=== PATIENT | female | born 1985 | race Caucasian/White ===

== ENCOUNTER 2016-09-26 16:32 | Observation (INO) | payer OTHER ==
[~2016-09-26] VITALS: Ht 162.6 cm; Wt 88.9 kg
[~2016-09-26 16:32] MED LIST: ESCITALOPRAM OX10 MG PO; MIRENA1 EACH; PANTOPRAZOLE SO40 M1 PO; PROAIR HFA0.09 MG/Ac PO; SEA-OMEGA 50 C1 EACH PO; TRAZODONE HCL50 M1 PO; VITAMIN D32000 UNIT PO
--- NOTE | 2016-09-26 18:31 | ED GI/GU/ABDOMINAL COMPLAINT ---
History of Present Illness General Chief Complaint: Abdominal Pain/Flank Pain Stated Complaint: ABD PAIN,VOMITING Source: patient, family, old records Exam Limitations: no limitations Vital Signs & Intake/Output Vital Signs & Intake/Output Vital Signs Date Time Temp Pulse Resp B/P B/P Pulse O2 O2 Flow FiO2 Mean Ox Delivery Rate 09/26 2253 97.7 95 18 127/59 97 Room Air 09/26 2119 97.8 93 18 126/65 95 09/26 1641 97.4 80 16 141/89 97 Room Air ED Intake and Output 09/27 0000 09/26 1200 Intake Total 1000 Output Total Balance 1000 Intake, IV 1000 Patient 196 lb Weight Weight Reported by Patient Measurement Method Allergies Coded Allergies: Penicillins (Intermediate, RASH/HIVES 12/21/15) Reconcile Medications Pantoprazole Sodium 40 MG TABLET. 1 TAB PO DAILY ACID REFLUX (Reported) Triage Note: PT STATES SHE HAS HAD ABD PAIN AND VOMITING FOR THE PAST 4 HOURS. Triage Nurses Notes Reviewed? yes ? N Is pt currently ? No Onset: Abrupt Duration: hour(s): (4), constant, waxing and waning Timing: recent history Quality/Severity: aching, cramping Severity Numbers: 7 Location: epigastric Radiation: no radiation Activities at Onset: none No Modifying Factors: none Associated Symptoms: DENIES HPI: 31-year-old female with history of Meckel's diverticulum requiring surgery in 2013 bowel obstruction presents complaining of sudden onset of nausea vomiting and epigastric abdominal pain. She had a normal bowel movement this morning. She is not taken anything else for her symptoms no fever no chills no sick contacts recent travel. Patient denies chest pain shortness of breath or urinary complaints. She has an intrauterine device denies chance of . No urinary complaints. No black or bloody stools no hematemesis (OTTONIEL KHAN) Past History Travel History Traveled to [place] past 21 day No Medical History Any Pertinent Medical History? 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 No (OTTONIEL KHAN) Review of Systems Review of Systems Constitutional: Reports: see HPI. All Other Systems: Reviewed and Negative Comments Review of systems: See HPI, All other systems negative. Constitutional, no chills no fever, no malaise HEENT: no sore throat no congestion Cardiovascular: No chest pain , no palpitation , no orthopnea Skin: no rashes, no change in skin Respiratory: No dyspnea no cough no sputum GI: nausea vomiting, no diarrhea, no bloating/constipation : No dysuria No hematuria, no frequency, no discharge Muscle skeletal: No joint pain, no joint swelling, no back pain Neurologic: no headache Psych: No stress Heme/endocrine: No bruising no bleeding Immunology: No lymphadenopathy (OTTONIEL KHAN) Physical Exam Physical Exam General Appearance: well developed/nourished, alert, awake Gastrointestinal: soft, tenderness Comments: Well-developed well-nourished person in no acute distress HEENT: Normal EENT exam; PERRL, EOMI,. HEAD is atraumatic. moist mucous membranes. Neck: Supple, normal range of motion Back: Nontender, no CVA tenderness. Full range of motion Cardiovascular: Regular rate and rhythms no murmurs rubs Respiratory: Chest nontender.There were no bony deformities, no asymmetry. No respiratory distress. Patient speaking in full complete sentences. Breath sounds clear to auscultation bilaterally: NO W/R/R Abdomen: Soft, epigastric tenderness to palpation no right upper quadrant tenderness negative Osborn sign nondistended, no appreciable organomegaly. Normal bowel sounds. No rebound/guarding, Extremity: No edema, full range of motion of extremities Neuro: Alert oriented x3, motor sensory normal. There were no obvious focal neurologic abnormalities. Skin: No appreciable rash on exposed skin, skin is warm and dry. Psych: Mood and affect is normal, memory and judgment is normal. Core Measures ACS in differential dx? No Severe Sepsis Present: No Septic Shock Present: No (OTTONIEL KHAN) Progress Differential Diagnosis: AAA, appendicitis, biliary colic, bowel obstruction, colon cancer, diverticulitis, ectopic , gastritis, hepatitis, hernia, ischemic bowel, inflamm bowel dis, kidney stone, ovarian cyst, ovarian torsion, pancreatitis, peptic ulcer, PUD/GERD, perforated viscous, SBO Plan of Care: Orders Procedure Date/time Status Regular Diet 09/27 B Active Pathway - chart 09/28 7 Active Patient Data 09/28 7 Active Code Status 09/[address] in observation 09/27 UNK Active VTE Mechanical Prophylaxis 09/27 UNK Active Vital Signs 09/27 UNK Active Activity/Ambulation 09/27 UNK Active PATHOLOGY SPECIMEN 09/26 2332 Active MAGNESIUM 09/26 1835 Complete Intake & Output 09/26 183 Active LIPASE 09/26 170 Complete HUMAN BETA HCG SCREEN 09/26 1701 Complete COMPREHENSIVE METABOLIC PANEL 09/26 1701 Complete CBC WITHOUT DIFFERENTIAL 09/26 1701 Complete AMYLASE 09/26 170 Complete Current Medications Sig/Freedom Start time Last Medication Dose Stop Time Status Admin Heparin Sodium 5,000 UNIT Q8 09/27 0600 AC (Porcine) Dextrose/Sodium 1,000 ML .[id number] 09/27 001 AC 09/27 Chloride 0039 (D5W-1/2 Normal Saline 1000ML) Lorazepam 1 MG Q4P PRN 09/27 0015 AC (Ativan) Morphine Sulfate 4 MG Q2P PRN 09/27 0015 AC (Morphine) Ondansetron HCl 4 MG Q6P PRN 09/27 0015 AC (Zofran) Oxycodone/ 1 TAB Q4P PRN 09/27 0015 AC Acetaminophen (Percocet) Oxycodone/ 2 TAB Q4P PRN 09/27 0015 AC Acetaminophen (Percocet) Laboratory Tests 09/26/161846: Magnesium 1.9 09/26/161846: Anion Gap 15, Estimated GFR > 60, BUN/Creatinine Ratio 22.0, Glucose 95, Calcium 9.6, Total Bilirubin 0.9, AST 22, ALT 38, Alkaline Phosphatase 69, Total Protein 8.4 H, Albumin 5.1 H, Globulin 3.3, Albumin/Globulin Ratio 1.5, Amylase 55, Lipase 51, Total Beta HCG NEGATIVE, CBC w Diff MAN DIFF ORDERED, RBC 4.59, MCV 88.7, MCH 29.9, RDW 13.0, MPV 8.8, Gran % 93.1 H, Lymphocytes % 4.5 L, Monocytes % 2.4, Eosinophils % 0, Basophils % 0 L, Absolute Granulocytes 21.9 H, Segmented Neutrophils 86 H, Band Neutrophils 6 H, Absolute Lymphocytes 1.1 L, Lymphocytes 6 L, Monocytes 2, Absolute Monocytes 0.6, Absolute Eosinophils 0 , Absolute Basophils 0, Platelet Estimate INCREASED, Normochromic RBCs VERIFIED, Anisocytosis 1+, PUBS MCHC 33.7 Labs ordered patient medicated Toradol Pepcid Zofran IV. Case d/w dr yeh agrees with plan 1919 patient reports no improvement in symptoms she has had no episodes of vomiting or dry heaving here she reports Dilaudid helps her when she was admitted to the hospital in the past Dilaudid 1 mg IV ordered CAT scan ordered 2029 patient reports pain improved pending CAT scan's cussed with her at length all of her results Case discussed with Dr. shakeel leija at bedside, pt will go to or this evening (PATRICIA PAN,OTTOINEL) Diagnostic Imaging: Viewed by Me: CT Scan. Discussed w/RAD: CT Scan. Radiology Impression: PATIENT: TITO DUNN PRESENT AGE: 31 PATIENT ACCOUNT NO: [id number] : 84 LOCATION: [facility] ORDERING PHYSICIAN: OTTONIEL PAN SERVICE DATE: 09/26/16 EXAM TYPE: CAT - CT ABD & PELVIS W IV CONTRAST EXAMINATION: CT ABDOMEN AND PELVIS WITH CONTRAST CLINICAL INFORMATION: 31-year-old female patient with history of Meckel's diverticulectomy and small bowel obstruction. Now presents with epigastric pain, nausea, and vomiting. COMPARISON: CT of the abdomen and pelvis on 08/20/2013. ( SBO). TECHNIQUE: Multidetector volumetric imaging was performed of the abdomen and pelvis before and after the IV administration of 95 mL of Optiray 320 intravenous contrast. Sagittal and coronal reformatted images were obtained on the technologist's workstation. DLP: 472 mGy-cm FINDINGS: LUNG BASES: The visualized lung bases are unremarkable. LIVER, GALLBLADDER, AND BILIARY TREE: Normal. PANCREAS: Unremarkable. SPLEEN: Unremarkable. ADRENAL GLANDS: Unremarkable. KIDNEYS AND URETERS: The kidneys are normal in size, shape, and attenuation. No hydronephrosis, hydroureter, or calculi seen. No perinephric stranding. A 7 mm hypodense nodule is located in the upper pole of the left kidney but too small to characterize. BLADDER: Unremarkable. GASTROINTESTINAL TRACT: The stomach, colon, and small bowel are normal. There are signs of previous Meckel's diverticulectomy. The appendix is dilated and contains 2 small appendicoliths. One of these is located at the base of the appendix. There is very mild periappendiceal inflammatory reaction. Series 602, image 43. No free fluid is seen. ABDOMINAL WALL: No significant hernia is appreciated. A very small fat-containing umbilical hernia is present. LYMPH NODES: Normal. VASCULAR: Unremarkable. PELVIC VISCERA: Uterus is normal in size and retroverted. A IUD is centrally located within the endometrial canal. The left ovary is normal. A unilocular cyst arises in the right ovary. This cyst measures 3 cm in width, 4.3 cm in AP diameter and 3.6 cm in cephalocaudad dimension. OSSEOUS STRUCTURES: Unremarkable. IMPRESSION: 1. Early signs of appendicitis. 2. Right ovarian cyst. 3. No evidence of intestinal obstruction. DICTATED BY: LENORE MAYO MD DATE /TIME DICTATED:09/26/162050 CAGE MAKER:AZRA DATE/TIME TRANSCRIBED: 09/26/162050 CONFIDENTIAL, DO NOT COPY WITHOUT APPROPRIATE AUTHORIZATION. < Electronically signed in Other Vendor System> SIGNED BY: LENORE MAYO MD 09/26/162108 Initial ED EKG: none (OTTONIEL KHAN) Departure Departure Time of Disposition: 2147 Disposition: STILL A PATIENT Condition: Stable Referrals: TRINO MUSE (PCP/Family) Departure Forms: Customer Survey General Discharge Information OR/GI Note Spoke With: JUANJO SAENZ MD ED Treatment Decision: TITO DUNN requires urgent operative management or an emergent procedure that cannot be performed in the Emergency Room setting. 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 I have also reviewed all the pertinent lab results and diagnostic results. I agree with the findings and the plan of care as documented in the PA's/HIGHWAY MAINTENANCE CREW WORKER's documentation. [X] I have reviewed the ED Record and agree with the PA's/HIGHWAY MAINTENANCE CREW WORKER's documentation. [] Additions or exceptions (if any) to the PAs/HIGHWAY MAINTENANCE CREW WORKER's note and plan are summarized below: [] (OLLIE GALVIN,SHRAVAN)
[2016-09-26 19:30] LABS: ABSOLUTE BASOPHIL COUNT 0 /CUMM (0.0-0.2); ABSOLUTE EOSINOPHIL COUNT 0 /CUMM (0.0-0.7); ABSOLUTE GRANULOCYTE CT 21.9 /CUMM (1.4-6.5); ABSOLUTE LYMPH COUNT 1.1 /CUMM (1.2-3.4); ABSOLUTE MONOCYTE COUNT 0.6 /CUMM (0.10-0.60); BASOPHIL % 0 % (0.0-2.0); EOSINOPHIL % 0 % (0-5); GRANULOCYTE % 93.1 % (42.2-75.2); HEMATOCRIT 40.8 % (37-47); MEAN CORPUSCULAR HGB 29.9 PG (27.0-31.0); MEAN CORPUSCULAR HGB CONC 33.7 G/DL (33.0-37.0); MEAN CORPUSCULAR VOLUME 88.7 FL (81.0-99.0); MEAN PLATELET VOLUME 8.8 FL (7.4-10.4); PLATELET COUNT 411 /CUMM (130-400); RED BLOOD CELL CT 4.59 /CUMM (4.20-5.40); WHITE BLOOD CELL COUNT 23.6 /CUMM (4.8-10.8)
--- NOTE | 2016-09-26 21:09 | CT SCAN REPORT ---
EXAMINATION: CT ABDOMEN AND PELVIS WITH CONTRAST CLINICAL INFORMATION: 31-year-old female patient with history of Meckel's diverticulectomy and small bowel obstruction. Now presents with epigastric pain, nausea, and vomiting. COMPARISON: CT of the abdomen and pelvis on 08/20/2013. (SBO). TECHNIQUE: Multidetector volumetric imaging was performed of the abdomen and pelvis before and after the IV administration of 95 mL of Optiray 320 intravenous contrast. Sagittal and coronal reformatted images were obtained on the technologist's workstation. DLP: 472 mGy-cm FINDINGS: LUNG BASES: The visualized lung bases are unremarkable. LIVER, GALLBLADDER, AND BILIARY TREE: Normal. PANCREAS: Unremarkable. SPLEEN: Unremarkable. ADRENAL GLANDS: Unremarkable. KIDNEYS AND URETERS: The kidneys are normal in size, shape, and attenuation. No hydronephrosis, hydroureter, or calculi seen. No perinephric stranding. A 7 mm hypodense nodule is located in the upper pole of the left kidney but too small to characterize. BLADDER: Unremarkable. GASTROINTESTINAL TRACT: The stomach, colon, and small bowel are normal. There are signs of previous Meckel's diverticulectomy. The appendix is dilated and contains 2 small appendicoliths. One of these is located at the base of the appendix. There is very mild periappendiceal inflammatory reaction. Series 602, image 43. No free fluid is seen. ABDOMINAL WALL: No significant hernia is appreciated. A very small fat-containing umbilical hernia is present. LYMPH NODES: Normal. VASCULAR: Unremarkable. PELVIC VISCERA: Uterus is normal in size and retroverted. A IUD is centrally located within the endometrial canal. The left ovary is normal. A unilocular cyst arises in the right ovary. This cyst measures 3 cm in width, 4.3 cm in AP diameter and 3.6 cm in cephalocaudad dimension. OSSEOUS STRUCTURES: Unremarkable. IMPRESSION: 1. Early signs of appendicitis. 2. Right ovarian cyst. 3. No evidence of intestinal obstruction.
--- NOTE | 2016-09-26 22:05 | History & Physical Pre-Op ---
JAYSHREE LAUGHLIN 09/26/162156: General Information and HPI MD Statement: I have seen and personally examined TITO SALAZAR and documented this H&P. The patient is a 31 year old F who presented with a patient stated chief complaint of [abdominal pain]. Source of Information: patient Exam Limitations: no limitations History of Present Illness: Ms. Salazar is a 31-year-old female with a past medical history of GERD and asthma who complained of sudden onset mid epigastric abdominal pain that started early this afternoon. This pain was also associated with nausea and vomiting but primarily of dry heaving. She states that she continued at work but pain worsened and became more centrally located in the right lower quadrant. She denies any changes in bladder or bowel habits. She complained of some mild chills but no fever and she has no other complaints at this time. CAT scan taken today at [facility] emergency room demonstrates early presentation of appendicitis. 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 History of MRSA: No History of VRE: No History of CDIFF: No Surgical History Pertinent Surgical History: MECKEL'S DIVERTICULUM, OVARIAN CYST Past Family/Social History Psychosocial History Services at Home None ETOH Use: occasional use Illicit Drug Use: denies illicit drug use Exam & Diagnostic Data Last 24 Hrs of Vital Signs/I&O Vital Signs Date Time Temp Pulse Resp B/P B/P Pulse O2 O2 Flow FiO2 Mean Ox Delivery Rate 09/26 2118 97.8 93 18 126/65 95 09/26 1641 97.4 80 16 141/89 97 Room Air Physical Exam General Appearance Alert, Oriented X3, Cooperative Skin No Rashes HEENT PERRLA Cardiovascular Regular Rate, Normal S1, Normal S2 Lungs Clear to Auscultation Abdomen right lower quadrant tenderness to palpation at McBurney's point, positive Rovsing sign, positive bowel sounds, obese, soft Neurological Strength at 5/5 X4 Ext Extremities No Edema, Normal Pulses Last 24 Hrs of Labs/Ramu: Laboratory Tests 09/26/161846: Magnesium 1.9 05/31/17 1847: Anion Gap 15, Estimated GFR > 60, BUN/Creatinine Ratio 22.0, Glucose 95, Calcium 9.6, Total Bilirubin 0.9, AST 22, ALT 38, Alkaline Phosphatase 69, Total Protein 8.4 H, Albumin 5.1 H, Globulin 3.3, Albumin/Globulin Ratio 1.5, Amylase 55, Lipase 51, Total Beta HCG NEGATIVE, CBC w Diff MAN DIFF ORDERED, RBC 4.59, MCV 88.7, MCH 29.9, RDW 13.0, MPV 8.8, Gran % 93.1 H, Lymphocytes % 4.5 L, Monocytes % 2.4, Eosinophils % 0, Basophils % 0 L, Absolute Granulocytes 21.9 H, Segmented Neutrophils 86 H, Band Neutrophils 6 H, Absolute Lymphocytes 1.1 L, Lymphocytes 6 L, Monocytes 2, Absolute Monocytes 0.6, Absolute Eosinophils 0 , Absolute Basophils 0, Platelet Estimate INCREASED, Normochromic RBCs VERIFIED, Anisocytosis 1+, PUBS MCHC 33.7 Diagnostic Data Other Results SERVICE DATE: 09/26/16 EXAM TYPE: CAT - CT ABD & PELVIS W IV CONTRAST EXAMINATION: CT ABDOMEN AND PELVIS WITH CONTRAST CLINICAL INFORMATION: 31-year-old female patient with history of Meckel's diverticulectomy and small bowel obstruction. Now presents with epigastric pain, nausea, and vomiting. COMPARISON: CT of the abdomen and pelvis on 08/20/2013. (SBO). TECHNIQUE: Multidetector volumetric imaging was performed of the abdomen and pelvis before and after the IV administration of 95 mL of Optiray 320 intravenous contrast. Sagittal and coronal reformatted images were obtained on the technologist's workstation. DLP: 472 mGy-cm FINDINGS: LUNG BASES: The visualized lung bases are unremarkable. LIVER, GALLBLADDER, AND BILIARY TREE: Normal. PANCREAS: Unremarkable. SPLEEN: Unremarkable. ADRENAL GLANDS: Unremarkable. KIDNEYS AND URETERS: The kidneys are normal in size, shape, and attenuation. No hydronephrosis, hydroureter, or calculi seen. No perinephric stranding. A 7 mm hypodense nodule is located in the upper pole of the left kidney but too small to characterize. BLADDER: Unremarkable. GASTROINTESTINAL TRACT: The stomach, colon, and small bowel are normal. There are signs of previous Meckel's diverticulectomy. The appendix is dilated and contains 2 small appendicoliths. One of these is located at the base of the appendix. There is very mild periappendiceal inflammatory reaction. Series 602, image 43. No free fluid is seen. ABDOMINAL WALL: No significant hernia is appreciated. A very small fat-containing umbilical hernia is present. LYMPH NODES: Normal. VASCULAR: Unremarkable. PELVIC VISCERA: Uterus is normal in size and retroverted. A IUD is centrally located within the endometrial canal. The left ovary is normal. A unilocular cyst arises in the right ovary. This cyst measures 3 cm in width, 4.3 cm in AP diameter and 3.6 cm in cephalocaudad dimension. OSSEOUS STRUCTURES: Unremarkable. IMPRESSION: 1. Early signs of appendicitis. 2. Right ovarian cyst. 3. No evidence of intestinal obstruction. DICTATED BY: LENORE MAYO MD DATE/TIME DICTATED:09/26/162050 GLASS BLOWER HELPER:AZRA DATE/TIME TRANSCRIBED:09/26/162050 Assessment/Plan Assessment/Plan: Ms. Salazar is a 31-year-old female with sudden onset of mid epigastric abdominal pain now located in the right lower quadrant. CAT scan findings revealed early appendicitis. Her laboratory values also revealed leukocytosis to 23,000. Given this information Dr. Saenz feels it necessary to take the patient to the operating room suite undergo laparoscopic appendectomy this evening. Plan Nothing by mouth IV fluid IV antibiotics These findings were discussed with the patient who is known to Dr. Saenz and is in agreement with the plan. As Ranked By This Provider Problem List: 1. Appendicitis JUANJO SAENZ MD 09/26/16 7655: General Information and HPI Allergies/Medications Home Med list Pantoprazole Sodium 40 MG TABLET. 1 TAB PO DAILY ACID REFLUX (Reported) Attending MD Review Statement Attending Statement Attending MD Statement: examined this patient, reviewed images Attending Assessment/Plan: 31YO WOMAN WITH PROGRESSION OF ABDOMINAL PAIN C/W APPENDICITIS. CT CONFIRMS DIAGNOSIS. PLAN FOR BROAD SPECTRUM ANTIBIOTICS AND PROMPT LAPAROSCOPIC APPENDECTOMY. RISK OF INFECTION AND BLEEDING DISCUSSED.
--- NOTE | 2016-09-26 23:43 | Operative Report ---
Operative/Inv Procedure Report Surgery Date: 09/26/16 Name of Procedure: Laparoscopic appendectomy Pre-Operative Diagnosis: Acute appendicitis Post-Operative Diagnosis: Same Estimated Blood Loss: scant Surgeon/Director Of Food And Beverage Services: Antonio Read M.D./Hasmukh PAN Anesthesia: general endotracheal tube Specimens: Appendix Operative/Procedure Note Note: After consent patient is brought to the operating room and laid supine. General anesthesia was obtained his abdomen was prepped and draped. Skin above the umbilicus was after local anesthesia a curvilinear incision made sharply. We dissected through subcutaneous tissues tissues bluntly and identified the fascia. It was grasped with Ro's and a fasciotomy created sharply. The peritoneum was entered sharply and a blunt Sullivan port was placed. Pneumoperitoneum was achieved. 2, 5 mm ports were placed in the suprapubic region and left lower quadrant, after local anesthesia was instilled and under direct vision the camera. Patient placed in Trendelenburg and rotated towards the left. The abdomen was explored. There was an inflamed appendix in the right lower quadrant. It was intraperitoneal with a small amount of retroperitoneal attachments laterally. These were taken down with cautery. Was no gross evidence of perforation. There is mild turbid fluid in the peritoneal cavity. The appendix was grasped at the base and a window through the mesentery was developed with a [place] dissector. The mesentery was divided with Endo LIZBET Renteria load. The base was divided with a reload. The appendix placed in Endo Catch bag and cinched up. Perineal cavity isn't irrigated normal saline. Hemostasis was adequate. The ports then removed. Appendix was delivered. The fascia was closed with 0 Vicryl suture. Skin incisions closed with 4-0 Vicryl. Steri-Strips and sterile dressings were applied. Sponge and needle counts are correct CC: MAXWELL PAN,TRINO
--- NOTE | 2016-09-27 00:23 | Admission Core Measures ---
Admission Lab Results I reviewed the following labs: Laboratory Tests 09/26 09/26 7467 [id number] Chemistry Sodium (137 - 145 mmol/L) 139 Potassium (3.5 - 5.1 mmol/L) 4.2 Chloride (98 - 107 mmol/L) 101 Carbon Dioxide (22 - 30 mmol/L) 23 Anion Gap (5 - 16) 15 BUN (7 - 17 mg/dL) 11 Creatinine (0.5 - 1.0 mg/dL) 0.5 Estimated GFR (>60 ml/min) > 60 BUN/Creatinine Ratio (7 - 25 %) 22.0 Glucose (65 - 99 mg/dL) 95 Calcium (8.4 - 10.2 mg/dL) 9.6 Magnesium (1.6 - 2.3 mg/dL) 1.9 Total Bilirubin (0.2 - 1.3 mg/dL) 0.9 AST (14 - 36 U/L) 22 ALT (9 - 52 U/L) 38 Alkaline Phosphatase (<127 U/L) 69 Total Protein (6.3 - 8.2 g/dL) 8.4 H Albumin (3.5 - 5.0 g/dL) 5.1 H Globulin (1.9 - 4.2 gm/dL) 3.3 Albumin/Globulin Ratio (1.1 - 2.2 %) 1.5 Amylase (30 - 110 U/L) 55 Lipase (23 - 300 U/L) 51 Total Beta HCG (NEGATIVE) NEGATIVE Hematology CBC w Diff MAN DIFF ORDERED WBC (4.8 - 10.8 /CUMM) 23.6 H RBC (4.20 - 5.40 /CUMM) 4.59 Hgb (12.0 - 16.0 G/DL) 13.7 Hct (37 - 47 %) 40.8 MCV (81.0 - 99.0 FL) 88.7 MCH (27.0 - 31.0 PG) 29.9 RDW (11.5 - 14.5 %) 13.0 Plt Count (130 - 400 /CUMM) 411 H MPV (7.4 - 10.4 FL) 8.8 Gran % (42.2 - 75.2 %) 93.1 H Lymphocytes % (20.5 - 51.1 %) 4.5 L Monocytes % (1.7 - 9.3 %) 2.4 Eosinophils % (0 - 5 %) 0 Basophils % (0.0 - 2.0 %) 0 L Absolute Granulocytes (1.4 - 6.5 /CUMM) 21.9 H Segmented Neutrophils (42.2 - 75.2 %) 86 H Band Neutrophils (0.0 - 5.0 %) 6 H Absolute Lymphocytes (1.2 - 3.4 /CUMM) 1.1 L Lymphocytes (20.5 - 51.1 %) 6 L Monocytes (1.7 - 9.3 %) 2 Absolute Monocytes (0.10 - 0.60 /CUMM) 0.6 Absolute Eosinophils (0.0 - 0.7 /CUMM) 0 Absolute Basophils (0.0 - 0.2 /CUMM) 0 Platelet Estimate (ADEQUATE) INCREASED Normochromic RBCs VERIFIED Anisocytosis 1+ PUBS MCHC (33.0 - 37.0 G/DL) 33.7 Admission Meds I reviewed the following Meds: Current Medications Sig/Freedom Start time Last Medication Dose Stop Time Status Admin Dextrose/Sodium 1,000 ML .[id number] 09/27 0015 UNVr Chloride (D5W-1/2 Normal Saline 1000ML) Heparin Sodium 5,000 UNIT Q8 09/27 0600 UNVr (Porcine) Lorazepam 1 MG Q4P PRN 09/27 0015 UNVr (Ativan) Morphine Sulfate 4 MG Q2P PRN 09/27 0015 UNVr (Morphine) Ondansetron HCl 4 MG Q6P PRN 09/27 0015 UNVr (Zofran) Oxycodone/ 1 TAB Q4P PRN 06 0015 UNVr Acetaminophen (Percocet) Oxycodone/ 2 TAB Q4P PRN 06 0015 UNVr Acetaminophen (Percocet) Acute Coronary Syndrome Inclusion Criteria ACS Diagnosis No Inpatient Core Measures LDL Reminder: If No, please order W/I first 24hr of stay Congestive Heart Failure Inclusion Criteria CHF Diagnosis No Cerebrovascular accident Inclusion Criteria CVA/TIA Diagnosis No Inpatient Core Measures Bedside Swallow Eval Reminder: If BSE failed, place ST order Antithrombotic Reminder: Order Antithrombotic Medication by end of day 2 Antithrombotic Reminder: Document Reason Antithrombotic Not ordered by end of day 2 AFIB/Flutter Reminder: If Present, add to problem list AFIB/Flutter Reminder: Order Anticoag Medication for pts with AFIB/Flutter Atherosclerosis Reminder: If Present, add to problem list LDL Reminder: If No, please order W/I first 24hr of stay PT Order Reminder: If No, please order Venous thromboembolism Inpatient Core Measures VTE Risk Factors: Obesity, Surgery No Mech VTE prophylaxis d/t No contraindications No VTE Pharm Prophylaxis d/t No contraindications Inclusion Criteria - Per Current guidelines, there needs to be overlap - treatment for the first 5 days of Warfarin therapy. - Parenteral Anticoagulation (IV or SC) needs to be - given along with Warfarin therapy. VTE Diagnosis No VTE Type NONE VTE Confirmed by (Test) NONE Problem List As ranked by this Provider includes Assessment & Plan 1. Appendicitis HOME MEDS Home Med List Pantoprazole Sodium 40 MG TABLET.DR 1 TAB PO DAILY ACID REFLUX (Reported)
[2016-09-27 02:00] VITALS: BP 114/70
[2016-09-27 04:01] VITALS: BP 128/80
--- NOTE | 2016-09-27 05:48 | PN- General Surgery ---
See Addendum Subjective Subjective: poc s/p lap appy resting comfortably no major issues overnight denies cp, sob, no n+v with diet has voided independently Objective Vital Signs and I&Os Vital Signs Date Time Temp Pulse Resp B/P B/P Pulse O2 O2 Flow FiO2 Mean Ox Delivery Rate 09/27 0401 98.0 75 18 128/80 96 Nasal Cannula 09/27 0200 98.0 84 20 114/70 93 Nasal 2.0L Cannula 09/26 2253 97.7 95 18 127/59 97 Room Air 09/26 2119 97.8 93 18 126/65 95 09/26 1641 97.4 80 16 141/89 97 Room Air Intake & Output 09/27 0800 09/27 0000 09/26 1600 09/26 0800 09/26 0000 09/25 1600 Intake Total 1000 Output Total Balance 1000 Intake, IV 1000 Number 0 Bowel Movements Patient 196 lb Weight Weight Reported by Patient Measurement Method Physical Exam: cv: rrr lungs: clear abd: soft, no guarding to palp drsgs dry ext: warm, distal cms intact Assessment/Plan Assessment/Plan surgical stable plan oob/ambulate advance diet d/c iv narcs plan for d/c home this am Core Measures/Miscellaneous Venous Thromboembolism VTE Risk Factors: Surgery VTE Contraindications: No Contraindications VTE Diagnosis: No VTE Type: NONE VTE Confirmed by (Test): NONE Beta Verito Is Beta Verito a Home Med? No Antibiotics Is Patient on Antibiotics? No
--- NOTE | 2016-09-27 05:52 | Patient Discharge Instructions ---
Discharge Instructions General Discharge Information You were seen/treated for: acute appendicitis You had these procedures: laparoscopic appendectomy Watch for these problems: temp>101.5, increase wound drsinage/redness, increased pain No bath, but you may shower: Yes Other wound care: keep wound clean and dry Diet Continue normal diet: Yes Recommended Diet: Regular Activity Activity Limited to: Weight bear as tolerated Other activity limits: no strenuous activity Acute Coronary Syndrome Inclusion Criteria At DC or during hospital stay patient has or had the following: ACS DIAGNOSIS No Discharge Core Measures Meds if any: Prescribed or Continued at Discharge Meds if any: NOT Prescribed or Continued at Discharge Congestive Heart Failure Inclusion Criteria At DC or during hospital stay patient has or had the following: CHF DIAGNOSIS No Discharge Core Measures Meds if any: Prescribed or Continued at Discharge Meds if any: NOT Prescribed or Continued at Discharge Cerebrovascular accident Inclusion Criteria At DC or during hospital stay patient has or had the following: CVA/TIA Diagnosis No Discharge Core Measures Meds if any: Prescribed or Continued at Discharge Meds if any: NOT Prescribed or Continued at Discharge Venous thromboembolism Inclusion Criteria VTE Diagnosis No VTE Type NONE VTE Confirmed by (Test) NONE Discharge Core Measures - Per Current guidelines, there needs to be overlap - treatment for the first 5 days of Warfarin therapy. - If discharged on Warfarin prior to 5 days of - overlap therapy, the patient will need to be - assessed for post discharge needs including - *Post discharge parental anticoagulation - *Warfarin and/or parental anticoagulation education - *Follow up date to check INR post discharge At least 5 days overlap therapy as Inpatient No Meds if any: Prescribed or Continued at Discharge Note: Overlap Therapy is Warfarin and Anticoagulant Meds if any: NOT Prescribed or Continued at Discharge
[2016-09-27] MEDS ORDERED: HYDROMORPHONE HC2 M1 PO (05:53)
[2016-09-27 06:00] VITALS: BP 118/66
[2016-09-27 08:20] VITALS: BP 104/68
[2016-09-27 14:33] VITALS: BP 100/60
[2016-09-27] MEDS ORDERED: ZOFRAN ODT4 M1 SL (19:11)
--- NOTE | 2016-09-28 10:04 | Surg Short-stay <48hrs Dis Sum ---
Visit Information Visit Dates Admission Date: 09/26/16 Discharge Date: 09/27/16 Surgical Short Stay DC Summary Admission Diagnosis: appendicitis Final Diagnosis: same Procedure(s): laparoscopic appendectomy Summary/Significant Findings: none Condition at Discharge: good Discharge Disposition: home or self care Discharge instructions provided to patient/family: Yes Post discharge follow-up plan: 2 weeks
== END 2016-09-27 21:21 ==
LOC: ERH 16:32 → ER-OR 16:48 → CRI 23:58 → 2NA 09-27 01:49
PROVIDERS: Physician Assistant Medical; ADMIT Surgery
DX: K35.80 Unspecified acute appendicitis (principal); J45.909 Unspecified asthma, uncomplicated; F41.9 Anxiety disorder, unspecified; Q43.0 Meckel's diverticulum (displaced) (hypertrophic); D72.829 Elevated white blood cell count, unspecified; K21.9 Gastro-esophageal reflux disease without esophagitis
CPT/HCPCS: 74177; 88304; 96361; 96365; 96372; 96374; 96375; 96376; G0378; J0131; J0696; J1170; J1630; J1644; J1885; J2250; J2405; J3010; J7042

== ENCOUNTER → 2017-05-08 | Day surgery (SDC) | payer OTHER ==
[~2017-05-08] VITALS: Ht 162.6 cm; Wt 90.7 kg
[~2017-05-08] MED LIST changes: +AZITHROMYCIN250 M1 PO; +CHERATUSSIN AC118 M1 PO; +HYDROMORPHONE HC2 M1 PO; +IBUPROFEN800 M1 PO; +MOBIC15 M1 PO; +PREDNISONE50 M1 PO; +PROAIR HFA8.5 GM INH; +RANITIDINE HCL150 MG PO; +VITAMIN B-122000 MC1 PO; +VITAMIN D2000 UNIT PO; +ZOFRAN ODT4 M1 SL
--- NOTE | 2017-05-08 12:13 | Operative Report ---
Operative/Inv Procedure Report Surgery Date: 05/08/17 Name of Procedure: Laparoscopic incisional hernia repair Pre-Operative Diagnosis: Incisional hernia Post-Operative Diagnosis: Same Estimated Blood Loss: scant Surgeon/Log Cutter: Jacek GALVIN,Antonio Mackey/Kristy PAN Anesthesia: general endotracheal tube Implants: 9 cm Parietex mesh Operative/Procedure Note Note: After consent patient was brought to the operative room and laid supine. Gen. anesthesia was obtained and her left arm tucked. She her abdomen was then prepped and draped. The skin and left upper quadrant was after local anesthesia and a transverse incision made sharply. Using a 12 mm optical trocar we gained access to the peritoneum visually. Pneumoperitoneum was achieved. No overt bowel injury was identified. 2, 5 mm ports were placed and left lower quadrant after local anesthesia was instilled and under direct vision the camera. The abdomen was explored. There was an approximate 3 cm fascial defect. We took down the preperitoneal fat circumferentially with cautery. The fascia was closed transversely with running 0 Maxon V LOC. I chose a 9 cm Parietex mesh to cover the fascial closure. The mesh was anchored in 4 quadrants with 0 [place]- [place] suture. It was then hydrated rolled up and placed in the peritoneal cavity. It was unraveled below the defect. The transfixion sutures then brought up percutaneously in a sequential fashion. The sutures then tied down after the mesh was laying flat. The mesh was then anchored to the anterior abdominal wall in a double crown fashion using the absorbable tackers. Once were happy the placement mesh we allowed the gas to esape. The ports were delivered and fascia and the left upper quadrant closed with 0 Vicryl suture. Skin incisions closed with 4-0 Vicryl. Steri-Strips and sterile dressing applied. Sponge and needle counts are correct CC: Chantal PAN,Lindsay Martínez
== END ==
LOC: STS 02:16
DX: K43.2 Incisional hernia without obstruction or gangrene (principal); K21.9 Gastro-esophageal reflux disease without esophagitis; J45.909 Unspecified asthma, uncomplicated
CPT/HCPCS: 81025; C9399; J0131; J1885; J2250; J2405

== ENCOUNTER → 2017-08-16 | Day surgery (SDC) | payer OTHER ==
[~2017-08-16] VITALS: Ht 162.6 cm; Wt 94.3 kg
[~2017-08-16] MED LIST changes: +PERCOCET 5-3251 EACH PO
--- NOTE | 2017-08-16 15:57 | Operative Report ---
Operative/Inv Procedure Report Surgery Date: 08/16/17 Name of Procedure: Laparoscopic lysis of adhesions with division of ventral hernia mesh suture transfixion sites Pre-Operative Diagnosis: Abdominal pain Post-Operative Diagnosis: Same Estimated Blood Loss: scant Surgeon/Global Sales Executive: Jacek GALVIN,Antonio Mackey/Polina PAN Anesthesia: general endotracheal tube Operative Indication: 32-year-old healthy woman who has chronic abdominal pain following laparoscopic repair of incisional hernia. No specific etiology was determined on CT scan. There is concern that the pain is related to mesh fixation with sutures. Plan will be to perform laparoscopic lysis of adhesions and division of the sutures Operative/Procedure Note Note: After consent patient was brought to the operative room and laid supine. Gen. anesthesia was obtained and her left arm tucked. She her abdomen was then prepped and draped. The skin and left upper quadrant was after local anesthesia and a transverse incision made sharply. Using a 12 mm optical trocar we gained access to the peritoneum visually. Pneumoperitoneum was achieved. No overt bowel injury was identified. 2, 5 mm ports were placed and left lower quadrant after local anesthesia was instilled and under direct vision the camera. The abdomen was explored. There were numerous adhesions of omentum to the mesh which were taken down which cautery and sharp dissection. The mesh was in proper position without evidence of recurrent hernia. We identified the 4 transvaginal fixation sites and incised each one to release it. Following this, the ports were delivered and fascia and the left upper quadrant closed with 0 Vicryl suture. Skin incisions closed with 4-0 Vicryl. Steri-Strips and sterile dressing applied. Sponge and needle counts are correct
== END ==
LOC: STS 01:55
DX: R10.9 Unspecified abdominal pain (principal); K66.0 Peritoneal adhesions (postprocedural) (postinfection); K21.9 Gastro-esophageal reflux disease without esophagitis; E66.9 Obesity, unspecified; Z68.35 Body mass index [BMI] 35.0-35.9, adult; J45.909 Unspecified asthma, uncomplicated; Z90.49 Acquired absence of other specified parts of digestive tract; K57.30 Diverticulosis of large intestine without perforation or abscess without bleeding
CPT/HCPCS: 81025; J0131; J2250